=== PATIENT | male | born 1965 | race Caucasian/White ===

== ENCOUNTER 2022-03-08 08:43 | Outpatient (CLI) | payer BC, SELFPAY ==
--- NOTE | ~2022-03-08 | MR_ITS ---
EXAMINATION: MR ankle RT wo con DATE: 03/08/2022 10:09 INDICATION: Chronic right ankle pain TECHNIQUE: Magnetic resonance imaging (MRI) of the right ankle was performed without intravenous cont rast. Sequences included sagittal, coronal, and axial proton-density weighted fast spin echo without and with fat saturation. COMPARISON: None. FINDINGS: Medial ankle ligaments: There is thickening of the superficial deltoid ligament and loss of the normally well-defined striate d pattern of the deep deltoid ligament without significant surrounding edema consistent with scarring related to chronic sprains. The spring ligament complex remains normal. Lateral ankle ligaments: The anterior and posterior inferior tibiofibular ligaments are normal. There is attenuation of the an terior talofibular ligament without significant surrounding edema also consistent with sequela of chr onic sprain. The calcaneofibular and posterior talofibular ligaments are normal. Tendons: Moderate distal Achilles tendinosis/enthesopathy with thickening and mild increased intrasubstance si gnal along with multiple enthesopathic ossicles at its calcaneal insertion. The peroneus longus tendo n is normal. Peroneus brevis tendinopathy with fusiform thickening and superimposed small longitudina l split tear centered approximately 1.5 cm distal to the tip of the lateral malleolus. The tibialis a nterior and extensor hallucis longus and extensor digitorum longus tendons are normal. Mild enthesopa thy without discrete tear at the navicular insertion of the tibialis posterior tendon. The flexor dig itorum longus and flexor hallucis longus tendons are normal. Plantar fascia: Small plantar calcaneal spur with thickening and mild increased signal of the proximal plantar aponeu rosis most likely mild chronic enthesopathy. No surrounding soft tissue or marrow edema to suggest an acute plantar fasciitis. Bones/other: Bone alignment is normal. Mild cystic change versus erosion at the posterior tuberosity of the calcan eus near the insertion of the Achilles tendon. Marrow signal is otherwise normal with no fracture or pathologic marrow replacing process. 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 Remai jaylon joint spaces appear relatively preserved. Fluid: Physiologic amount fluid in the joint spaces. Mild subcutaneous edema at the medial lateral aspects o f the ankle. IMPRESSION: 1. Moderate distal Achilles tendinosis/enthesopathy and chronic mild enthesopathy at the proximal celso ntar aponeurosis and distal tibialis posterior tendon. 2. Scarring consistent with chronic lateral and medial ankle sprains at the anterior talofibular and deep and superficial deltoid ligaments. Reviewed, dictated and finalized at location B. IMPRESSION: 1. Moderate distal Achilles tendinosis/enthesopathy and chronic mild enthesopat hy at the proximal plantar aponeurosis and distal tibialis posterior tendon. 2. Scarring consistent with chronic lateral and medial ankle sprains at the ant erior talofibular and deep and superficial deltoid ligaments.
== END 2022-03-08 08:44 | disposition home or self-care (01) ==
PROVIDERS: PCP Family Medicine; Visit Provider Orthopaedic Surgery
DX: M25.571 Pain in right ankle and joints of right foot (principal); G89.29 Other chronic pain; M76.61 Achilles tendinitis, right leg
CPT/HCPCS: 73721